=== PATIENT | female | born 1980 | race Caucasian/White ===

== ENCOUNTER → 2017-05-31 | Outpatient (CLI) | payer BC ==
--- NOTE | 2017-05-31 14:16 | MAM ---
History: Palpable nodule right breast 2:00. DATE OF SERVICE: 05/31/2017 Services provided: Full field digital bilateral diagnostic mammography. CAD, the images were reviewed with R2 computer aided detection. Targeted Limited right breast sonography. FINDINGS: Routine views are obtained as baseline exam. Scattered glandular parenchymal pattern with increased mammographic density. No dominant mass, architectural distortion or clustered microcalcification. No mammographic abnormality corresponding to the region of palpable change right breast. Benign-appearing nodule right breast 9-10 o'clock, suspected partially visualized intraparenchymal lymph node. Directed ultrasound exam confirms region of palpable concern to correspond to a normal ridge of fibrofatty tissue. A benign intramammary lymph node is shown 10:00 on the right and appears benign. IMPRESSION: Benign exam. No mammographic or sonographic evidence for malignancy. Recommendation: Screening mammography according to the [employer] guidelines. These were reviewed with the patient. BIRAD CATEGORY: 2 BENIGN Electronically signed by: Ondina Riley MD 05/31/2017 2:16 PM CDT Workstation: [id number]
== END | disposition home or self-care (01) ==
LOC: MAMMO 12:54
PROVIDERS: ATTEND Nurse Practitioner Family
DX: R92.8 Other abnormal and inconclusive findings on diagnostic imaging of breast (principal)